=== PATIENT | female | born 1955 | race Caucasian/White ===

== ENCOUNTER 2020-01-10 09:46 | Emergency (ER) | payer OTHER ==
[~2020-01-10] VITALS: Ht 157.5 cm; Wt 70.0 kg
--- NOTE | 2020-01-10 09:53 | NUR ---
EKG IN TRIAGE
--- NOTE | 2020-01-10 10:15 | NUR ---
PT C/O LOWER ABD PAIN SINCE LAST NOC THAT BEGAN WITH EPIGATRIC PAIN AFTER EATING LOTS OF CHEESE AND "A SMALL SCOOP OF ICE CREAM." PT TOOK TUMS WITH RELIEF OF EPIGASRTIC BUT NOW HAS LOWER ABD PAIN. PT SEEN BY PMD THAT SENT HER HERE TO BE RULED OF FOR CHOLECYSTITIS. PT ON MONITOR WITH TACHYCARDIA AND HIGH BP.
--- NOTE | 2020-01-10 10:41 | NUR ---
US BEING DONE IN ROOM.
[2020-01-10 10:50] LABS: BASOPHILS # (AUTO) 0.03 x10^3/uL (0-0.1); BASOPHILS % (AUTO) 0 % (0-1); EOSINOPHILS # (AUTO) 0.01 x10^3/uL (0-0.4); EOSINOPHILS % (AUTO) 0 % (1-7); LYMPHOCYTES # (AUTO) 1.46 x10^3/uL (1-3.4); LYMPHOCYTES % (AUTO) 13 % (22-44); MD NO; MEAN CORPUSCULAR HEMOGLOBIN 32.2 pg (27.0-34.8); MEAN CORPUSCULAR HGB CONC 33.3 g/dL (32.4-35.8); MEAN CORPUSCULAR VOLUME 96.5 fL (80-100); MEAN PLATELET VOLUME 7.6 fL (7.4-10.4); MONOCYTES # (AUTO) 0.59 x10^3/uL (0.2-0.8); MONOCYTES % (AUTO) 5 % (2-9); NEUTROPHILS # (AUTO) 9.58 x10^3/uL (1.8-6.8); NEUTROPHILS % (AUTO) 82 % (42-75); PLATELET COUNT 285 x10^3/uL (130-400); RED BLOOD COUNT 4.44 x10^6/uL (3.82-5.3); RED CELL DISTRIBUTION WIDTH 14.2 % (9.6-15.2)
--- NOTE | 2020-01-10 10:52 | NUR ---
RECEIVED REPORT FROM SELINA POWELL. ASSUMING CARE AT THIS TIME.
[2020-01-10 11:00] LABS: ALANINE AMINOTRANSFERASE 687 U/L (12-78); ALBUMIN 3.7 g/dL (3.4-5.0); ANION GAP 8 mmol/L (5-15); CALCIUM 9.3 mg/dL (8.5-10.1); CHLORIDE 107 mmol/L (98-107); CREATININE 0.82 mg/dL (0.55-1.02)
[2020-01-10 11:04] LABS: ALKALINE PHOSPHATASE 134 U/L (45-117); TOTAL PROTEIN 7.4 g/dL (6.4-8.2); TROPONIN I < 0.015 ng/mL (0.000-0.045)
[2020-01-10] MEDS ORDERED: MULT1CAP19 PO (11:04)
[2020-01-10] MEDS ORDERED: LISI-167 PO (11:04)
[2020-01-10] MEDS ORDERED: FLUT9.9S NAS (11:04)
--- NOTE | 2020-01-10 11:04 | NUR ---
PT AMBULATED TO RESTROOM WITH STEADY GAIT TO PROVIDE URINE SAMPLE. UA COLLECTED AND SENT TO LAB.
[2020-01-10 11:06] VITALS: BP 158/95
[2020-01-10 11:10] LABS: MICROSCOPIC NOT IND
--- NOTE | 2020-01-10 11:23 | NUR ---
MD AT BEDSIDE TO UPDATE PT ON POC.
--- NOTE | 2020-01-10 11:32 | NUR ---
NEW ORDER FOR MORE LABS.
== END 2020-01-10 12:08 | disposition home or self-care (01) ==
LOC: ED 11:39
DX: K80.20 Calculus of gallbladder without cholecystitis without obstruction (principal); R10.12 Left upper quadrant pain; R10.13 Epigastric pain; R10.11 Right upper quadrant pain; R74.0 Nonspecific elevation of levels of transaminase and lactic acid dehydrogenase [LDH]; R00.0 Tachycardia, unspecified; R07.9 Chest pain, unspecified; I10 Essential (primary) hypertension
CPT/HCPCS: 36415; 71045; 76700; 80053; 80074; 81003; 83690; 84484; 85025; 93005; 99285